=== PATIENT | male | born 2000 | race Caucasian/White ===

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

== ENCOUNTER 2022-01-03 18:48 | Emergency (ER) | payer MEDICAID ==
[~2022-01-03] VITALS: Ht 172 cm; Wt 51.0 kg
[2022-01-03 18:59] VITALS: BP 172/86
--- NOTE | 2022-01-03 18:59 | ED Upper Extremity ---
General Chief Complaint: Upper Extremity Stated Complaint: R SHOULDER PAIN History of Present Illness Date Seen by Provider: January 03, 2022 Time Seen by Provider: 18:54 Initial Comments 21-year-old male presents with right upper arm/shoulder pain. Patient reports is been hurting for about 2 weeks. He does not recall any injury. He has full range of motion at his baseline but hurts. Reports is been hurting little bit worse over the last day or so. He did not do anything that hurt it sooner. 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 Patient denies any other injury, patient has not tried thing for the pain Allergies and Home Medications Allergies Coded Allergies: No Known Drug Allergies (Unverified , 11/25/18) Patient Home Medication List Home Medication List Reviewed: Yes Ibuprofen (Ibuprofen) 800 Mg Tablet, 800 MG PO Q8H PRN for PAIN-MILD Prescribed by: ADELAIDE GONZALEZ on 11/25/18 9929 Review of Systems Constitutional: No chills, No fever EENTM: no symptoms reported Respiratory: no symptoms reported Cardiovascular: no symptoms reported Gastrointestinal: no symptoms reported Genitourinary: no symptoms reported Musculoskeletal: see HPI Skin: no symptoms reported Psychiatric/Neurological: No Symptoms Reported Past Oicwlto-Gqayvf-Hjcecx Hx Seasonal Allergies Seasonal Allergies: No Past Medical History Surgeries: Yes (heart surgery, foot surgery x 2, ear tubes.) Respiratory: No Cardiac: No Neurological: Yes Seizure Disorder Genitourinary: No Gastrointestinal: No Musculoskeletal: No Endocrine: No HEENT: Yes (ear tubes) Cancer: No Psychosocial: No Integumentary: No Blood Disorders: No Physical Exam Vital Signs Capillary Refill : Height, Weight, BMI Height: 5'7.00" Weight: 234lbs. oz. 106.798148bi; 36.00 BMI Method:Stated General Appearance: WD/WN, no apparent distress Cardiovascular: normal peripheral pulses, regular rate, rhythm Respiratory: lungs clear, normal breath sounds Gastrointestinal: non tender, soft Shoulder: No limited ROM; soft tissue tenderness Elbow/Forearm: non-tender, normal ROM Hand: Right (Minor contracture of hand and wrist) Progress/Results/Core Measures Progress Progress Note : Progress Note Patient has full range of motion on physical exam. He has baseline movement and strength. There is no obvious injury so at this time x-rays not indicated. I will start him on naproxen for anti-inflammatory. Discussed with him using topical lidocaine and Voltaren cream. Gentle stretching and range of motion exercises. He should follow-up with a primary care provider in 1 week if symptoms or not improving Departure Impression Primary Impression: Strain of upper arm, right Qualified Codes: S46.911A - Strain of unspecified muscle, fascia and tendon at shoulder and upper arm level, right arm, initial encounter Disposition: HOME, SELF-CARE Condition: Stable Departure-Patient Inst. Referrals: ASHKAN BAEZA MD (PCP/Family) Primary Care Physician Patient Instructions: Active Range of Motion Exercises, Neck and Shoulders, Biceps Tendinopathy, Shoulder Rehab Exercises, Phase 1 Add. Discharge Instructions: 4% topical lidocaine with menthol cream or gel. Use as directed on package Voltaren/diclofenac cream, use as directed on package Gentle shoulder and upper arm stretches twice daily Please follow-up with your primary care provider if symptoms have not improved in 1 week All discharge instructions reviewed with patient and/or family. Voiced understanding. MELVIN PATTERSON DO January 03, 2022 18:59
== END 2022-01-03 19:14 | disposition home or self-care (01) ==
LOC: EDUNIT# 18:48 → ER FS 18:49
DX: S46.911A Strain of unspecified muscle, fascia and tendon at shoulder and upper arm level, right arm, initial encounter (principal); X58.XXXA Exposure to other specified factors, initial encounter
CPT/HCPCS: 99281

== ENCOUNTER 2022-01-16 11:43 | Emergency (ER) | payer MEDICAID ==
[~2022-01-16] VITALS: Ht 165.1 cm; Wt 108.5 kg
--- NOTE | 2022-01-16 13:20 | ED Lower Extremity ---
General Chief Complaint: Laceration Stated Complaint: LEFT FOOT LACERATION Nursing Triage Note: Patient reports he went to lock the door to his house at 0245 this morning and stepped on a chainsaw, cutting the bottom of his left foot. History of Present Illness Date Seen by Provider: January 16, 2022 Time Seen by Provider: 12:50 Initial Comments 21-year-old male is here with complaints of stepping on a stationary chainsaw with his left barefoot and sustaining a laceration to his midfoot area on the sole of his foot. Tetanus is not up-to-date. No active bleeding Allergies and Home Medications Allergies Coded Allergies: No Known Drug Allergies (Unverified , 11/25/18) Patient Home Medication List Home Medication List Reviewed: Yes Ibuprofen (Ibuprofen) 800 Mg Tablet, 800 MG PO Q8H PRN for PAIN-MILD Prescribed by: ADELAIDE GONZALEZ on 11/25/182152 Review of Systems Constitutional: no symptoms reported EENTM: no symptoms reported Respiratory: no symptoms reported Cardiovascular: no symptoms reported Gastrointestinal: no symptoms reported Genitourinary: no symptoms reported Musculoskeletal: other (puncture wound to sole of foot) Skin: no symptoms reported Psychiatric/Neurological: No Symptoms Reported Past Ctgzcid-Szvnro-Krvdld Hx Patient Social History Tobacco Use?: No Substance use?: No Alcohol Use?: No Pt feels they are or have been: No Immunizations Up To Date COVID19 Vaccine Multimedia Coordinator: Moderna Seasonal Allergies Seasonal Allergies: No Past Medical History Surgeries: Yes (heart surgery, foot surgery x 2, ear tubes.) Respiratory: No Cardiac: No Neurological: Yes Seizure Disorder Genitourinary: No Gastrointestinal: No Musculoskeletal: No Endocrine: No HEENT: Yes (ear tubes) Cancer: No Psychosocial: No Integumentary: No Blood Disorders: No Physical Exam Vital Signs Vital Signs - First Documented 01/16/22 12:08 Temp 36.5 Pulse 83 Resp 14 B/P (MAP) 154/67 (96) Pulse Ox 98 O2 Delivery Room Air Capillary Refill : Less Than 3 Seconds Height, Weight, BMI Height: 5'7.00" Weight: 234lbs. oz. 106.275598zs; 39.00 BMI Method:Stated General Appearance: no apparent distress HEENT: PERRL/EOMI Feet: left foot normal range of motion, left foot abrasions/lacerations, left foot soft tissue tenderness, left foot swelling Neurologic/Tendon: normal sensation, normal motor functions Neurologic/Psychiatric: no motor/sensory deficits, alert, normal mood/affect, oriented x 3 Lymphatic: no adenopathy Progress/Results/Core Measures Results/Orders My Orders Orders - SIDDHARTHA JOYNER MD Dipht,Pertuss(Acell),Tet Adult (Boostrix (01/16/22 13:30) Kush Bandage (01/16/22 13:59) Crutches (01/16/22 13:59) Vital Signs/I&O 01/16/22 12:08 Temp 36.5 Pulse 83 Resp 14 B/P (MAP) 154/67 (96) Pulse Ox 98 O2 Delivery Room Air Blood Pressure Mean: 96 Progress Progress Note : Progress Note 1. PUNCTURE WOUND OF LEFT FOOT: - Tdap given in ER - Levaquin 500mg daily for 7 days - Wound care instructions for dermabond - Ortho shoe/ KUSH bandage/ crutches - F/u with PCP in 5 to 7 days Departure Impression Primary Impression: Puncture wound of foot, left Qualified Codes: S91.332A - Puncture wound without foreign body, left foot, initial encounter Disposition: HOME, SELF-CARE Condition: Stable Departure-Patient Inst. Referrals: ASHKAN BAEZA MD (PCP/Family) Primary Care Physician Patient Instructions: DERMABOND, Wound Care (DC) Add. Discharge Instructions: - Levaquin 500mg daily for 7 days - Tetanus shot given in ER - Wound care instructions for dermabond - Ortho shoe/ KUSH bandage/ crutches - F/u with PCP in 5 to 7 days All discharge instructions reviewed with patient and/or family. Voiced understanding. Scripts Levofloxacin (Levofloxacin) 750 Mg Tablet 750 MG PO DAILY for 7 Days, #7 TAB Prov: SIDDHARTHA JOYNER MD 01/16/22 SIDDHARTHA JOYNER MD January 16, 2022 13:19
[2022-01-16] MEDS ORDERED: TETANUS,DIPTH,PERTUSS P/F (BOOSTRIX) 0.5 ML VIAL IM ONE (13:30)
[2022-01-16] MEDS ORDERED: AUGMENTIN 875 MG TAB (AMOXICILLIN/CLAVULANATE) PO STA (13:58)
[2022-01-16] MEDS ORDERED: LEVO750T39 PO (14:14)
[2022-01-16 14:20] VITALS: BP 151/79
== END 2022-01-16 14:20 | disposition home or self-care (01) ==
LOC: EDUNIT# 11:43 → ER FS 11:44
DX: S91.332A Puncture wound without foreign body, left foot, initial encounter (principal); Z23 Encounter for immunization; W22.09XA Striking against other stationary object, initial encounter
CPT/HCPCS: 90715